=== PATIENT | female | born 2000 | race Caucasian/White ===

== ENCOUNTER 2024-01-20 01:01 | Day surgery (SDC) | payer OTHER ==
[2024-01-20 01:24] VITALS: BMI 21.4
== END 2024-01-20 05:24 | disposition home or self-care (01) ==
LOC: CSHLD/OP 01:01
PROVIDERS: ATTEND Family Medicine
DX: O47.03 False labor before 37 completed weeks of gestation, third trimester (principal); O43.893 Other placental disorders, third trimester; Z88.5 Allergy status to narcotic agent; Z3A.36 36 weeks gestation of pregnancy; Z79.899 Other long term (current) drug therapy
CPT/HCPCS: 81001; 87086; 87480; 87510; 87660; 99284